=== PATIENT | female | born 1995 | race American Indian/Alaskan Native ===

== ENCOUNTER 2017-12-25 08:55 | Emergency (ER) | payer SELFPAY ==
[2017-12-25 08:55] VITALS: BMI 40.1
[2017-12-25 09:08] VITALS: BP 109/75; PULSE 68; RESP 18; TEMP 98.1; O2SAT 98
--- NOTE | 2017-12-25 09:39 | C.PDOC ---
History Of Present Illness 22 y/o female with history of Asthma presents to ED with complaints of productive cough with yellow phlegm and congestion for 2 weeks. Patient states she has been using Mucinex with no improvement and denies fever, asthma intubation,sob, chest pain, nausea, vomiting or any other complaints at this time. LMP 12/06/17 Time Seen by Provider: 12/25/17 09:24 Chief Complaint (Nursing): Cough, Cold, Congestion History Per: Patient History/Exam Limitations: no limitations Onset/Duration Of Symptoms: Days Current Symptoms Are (Timing): Still Present Associated Symptoms: Cough, Nasal Congestion. 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 ENT: Positive for: Nose Congestion Respiratory: Positive for: Cough Physical Exam - Physical Exam Appears: Non-toxic, No Acute Distress Skin: Warm, Dry, No Rash Head: Atraumatic, Normacephalic Eye(s): bilateral: Normal Inspection Ear(s): Bilateral: Normal Oral Mucosa: Moist Throat: Normal, No Erythema, No Exudate Neck: Supple Cardiovascular: Rhythm Regular Respiratory: Normal Breath Sounds, No Rales, No Rhonchi, No Wheezing Gastrointestinal/Abdominal: Soft, No Tenderness, No Guarding, No Rebound Neurological/Psych: Oriented x3 ED Course And Treatment O2 Sat by Pulse Oximetry: 98 (RA) Pulse Ox Interpretation: Normal Medical Decision Making Medical Decision Making: Assessment: Bronchitis Progress: Patient discharged with Inhaler, Azithromycin and advised to follow up with PMD in 1-2 days Disposition Counseled Patient/Family Regarding: Diagnosis, Need For Followup, Rx Given - Disposition Referrals: [facility] [Outside] Disposition: HOME/ ROUTINE Disposition Time: 09:37 Condition: STABLE Additional Instructions: follow up with your doctor in 2 days call to make an appointment take medications as prescribed return to ED if symptoms worsens or progress Prescriptions: Albuterol HFA [Ventolin HFA 90 mcg/actuation (8 g)] 2 puff IH [id number] #1 puff Azithromycin [Zithromax] 250 mg PO DAILY #4 tab Hydrocodone/Chlorpheniramine [Tussionex] 5 ml PO QPM #60 ml Instructions: Acute Bronchitis Forms: [facility] (Gambian), General Discharge Instructions - Clinical Impression Clinical Impression: Bronchitis - Scribe Statement The provider has reviewed the documentation as recorded by the Christina Chance All medical record entries made by the Dahliaibmaria ines were at my direction and personally dictated by me. I have reviewed the chart and agree that the record accurately reflects my personal performance of the history, physical exam, medical decision making, and the department course for this patient. I have also personally directed, reviewed, and agree with the discharge instructions and disposition.
== END 2017-12-25 10:00 | disposition home or self-care (01) ==
LOC: C.ER 08:55
DX: J40 Bronchitis, not specified as acute or chronic (principal)